=== PATIENT | male | born 1980 | race African-American/Black ===

== ENCOUNTER 2023-04-08 14:24 | Emergency (ER) | payer MEDICARE, MEDICAID ==
[~2023-04-08] VITALS: Ht 182.9 cm; Wt 81.0 kg
[2023-04-08 14:48] VITALS: BP 156/94; RESP 20; TEMP 98.5; O2SAT 99
[2023-04-08 14:49] VITALS: PULSE 69
[2023-04-08 15:35] LABS: BASOPHILS % 1.1 % (0.0-2.0); EOSINOPHILS % 2.4 % (0.0-5.0); HEMATOCRIT. 25.8 % (42.0-52.0); HEMOGLOBIN. 8.8 g/dL (14.0-18.0); LYMPHOCYTES % 21.1 % (20.0-50.0); MEAN CORPUSCULAR HEMOGLOBIN 28.6 pg (28.0-32.0); MEAN CORPUSCULAR VOLUME 84.3 fL (80.0-94.0); MEAN PLATELET VOLUME 8.5 fl (7.4-10.4); MONOCYTES % 8.4 % (2.0-8.0); PLATELET 148 x1000/uL (130-400); RED BLOOD CELL COUNT 3.06 mill/uL (4.7-6.1); RED CELL DISTRIBUTION WIDTH 16.6 % (11.6-14.6); WHITE BLOOD COUNT 4.5 x1000/uL (4.5-11.0)
[2023-04-08 15:51] LABS: CHLORIDE 100 mEq/L (98-107); INDEX HEMOLYSI 1 (1-3); INDEX ICTERIC 1 (1-4); INDEX LIPEMIC 1 (1-3); POTASSIUM 4.3 mEq/L (3.5-5.1); SODIUM 139 mEq/L (136-145)
[2023-04-08 16:00] LABS: ALANINE AMINOTRANSFERASE 13 IU/L (13-61); ALBUMIN 4.1 g/dL (3.4-5.0); ASPARTATE AMINOTRANSFERASE 14 IU/L (15-37); BILIRUBIN TOTAL 0.8 mg/dL (0.1-1.0); CALCIUM 9.5 mg/dL (8.5-10.1); CARBON DIOXIDE 32 mEq/L (21-32); GLUCOSE 92 mg/dL (70-105); PROTEIN TOTAL 7.5 g/dL (6.0-8.3); UREA NITROGEN BLOOD 60 mg/dL (7-21)
[2023-04-08 16:10] LABS: CREATININE 10.7 mg/dL (0.6-1.3)
== END 2023-04-08 17:02 | disposition left against medical advice (07) ==
LOC: ER 14:52
DX: Z53.21 Procedure and treatment not carried out due to patient leaving prior to being seen by health care provider (principal)
CPT/HCPCS: 36415; 80053; 85025; 99281

== ENCOUNTER 2023-12-14 23:25 | Emergency (ER) | payer MEDICARE, MEDICAID ==
[~2023-12-14] VITALS: Ht 188 cm; Wt 81.0 kg
[2023-12-15 00:25] VITALS: O2SAT 100
[2023-12-15 00:49] LABS: BASOPHILS % 1.2 % (0.0-2.0); EOSINOPHILS % 2.4 % (0.0-5.0); HEMATOCRIT. 35.3 % (42.0-52.0); HEMOGLOBIN. 11.9 g/dL (14.0-18.0); LYMPHOCYTES % 20.5 % (20.0-50.0); MEAN CORPUSCULAR HEMOGLOBIN 28.8 pg (28.0-32.0); MEAN CORPUSCULAR HGB CONC 33.7 g/dL (31.0-37.0); MEAN CORPUSCULAR VOLUME 85.5 fL (80.0-94.0); MEAN PLATELET VOLUME 7.4 fl (7.4-10.4); NEUTROPHILS % 65.9 % (40.0-76.0); PLATELET 174 x1000/uL (130-400); RED BLOOD CELL COUNT 4.13 mill/uL (4.7-6.1); RED CELL DISTRIBUTION WIDTH 17.8 % (11.6-14.6); WHITE BLOOD COUNT 5.5 x1000/uL (4.5-11.0)
[2023-12-15 00:55] LABS: POTASSIUM 4.1 mEq/L (3.5-5.1)
[2023-12-15 00:56] LABS: CALCIUM 8.7 mg/dL (8.7-10.4)
[2023-12-15 01:15] LABS: CREATININE 7.8 mg/dL (0.6-1.3)
[2023-12-15] MEDS: HYDRALAZINE 20MG/ML VIAL IV ONE (02:23)
[2023-12-15 03:11] LABS: TROPONIN I HIGH SENSITIVITY 32 ng/L (3.0-53)
[2023-12-15 06:35] VITALS: BP 168/100; PULSE 100; RESP 18; TEMP 98
== END 2023-12-15 06:39 | disposition home or self-care (01) ==
LOC: ER 23:25 → CANBEDREQ 12-15 16:33
DX: R53.1 Weakness (principal); I10 Essential (primary) hypertension; Z99.2 Dependence on renal dialysis
CPT/HCPCS: 99285; 96374; 71045; 80048; 83880; 85025; 84484; 36415; 93005; J0360